=== PATIENT | male | born 1995 | race Caucasian/White ===

== ENCOUNTER 2019-04-25 13:19 | Emergency (ER) | payer BC, OTHER ==
--- NOTE | 2019-04-25 14:40 | XR ---
EXAMINATION TYPE: XR foot complete LT DATE OF EXAM: 04/25/2019 COMPARISON: NONE HISTORY: Laceration TECHNIQUE: 3 views FINDINGS: Metatarsals are intact. I see no fracture nor dislocation. The big toe appears intact. Ther e is no sign of a foreign body. IMPRESSION: Negative left foot exam.
--- NOTE | 2019-04-25 14:54 | ED ---
Wound/Laceration HPI - General Chief Complaint: Wound/Laceration Stated Complaint: Foot Lac Time Seen by Provider: 04/25/19 13:43 Source: patient, family Mode of arrival: ambulatory Limitations: no limitations - History of Present Illness Initial Comments: 23-year-old male presented for left great toe laceration. 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 He states he has a cut that he feels needs sutures. Patient denies any limitations in range of motion. Denies any weakness. Denies any other areas of injury. Patient states his tetanus is up-to-date within the last 10 years. Patient denies numbness tingling loss sensation. Remaining review of systems negative denies any other complaints or areas of injury. - Related Data Previous Rx's Medication Instructions Recorded Citalopram Hydrobromide [CeleXA] 40 mg PO DAILY #60 tab 05/01/16 LORazepam [Ativan] 0.5 mg PO HS #14 tab 05/01/16 Nicotine 21Mg/24Hr Patch [Habitrol] 1 patch TRANSDERM DAILY #30 patch 05/01/16 QUEtiapine [SEROquel] 50 mg PO HS #30 tab 05/01/16 Allergies Allergy/AdvReac Type Severity Reaction Status Date / Time No Known Allergies Allergy Verified 04/25/16 17:04 Review of Systems ROS Statement: Those systems with pertinent positive or pertinent negative responses have been documented in the HPI. ROS Other: All systems not noted in ROS Statement are negative. Past Medical History Past Medical History: No Reported History History of Any Multi-Drug Resistant Organisms: None Reported Past Surgical History: No Surgical Hx Reported Past Anesthesia/Blood Transfusion Reactions: No Reported Reaction Past Psychological History: Anxiety, Depression Smoking Status: Current every day smoker Past Alcohol Use History: None Reported Past Drug Use History: None Reported - Past Family History Father Additional Family Medical History / Comment(s): Multiple sclerosis. Mother Family Medical History: No Reported History General Exam - General Exam Comments Initial Comments: General: The patient is awake and alert, in no distress, and does not appear acutely ill. Eye: Pupils are equal, round and reactive to light, extra-ocular movements are intact. No nystagmus. There is normal conjunctiva bilaterally. No signs of icterus. Musculoskeletal: Normal ROM at the IP joint, tender at laceration Strength 5/5. Sensation intact. DP pulses equal bilaterally 2+. Capillary refill less than 3 seconds Neurological: A&O x 3. CN II-XII intact, There are no obvious motor or sensory deficits. Coordination appears grossly intact. Speech is normal. Skin: Skin is warm and dry and no rashes or lesions are noted. 3cm laceration of the dorsal side of left great toe, no nailbed involvement Psychiatric: Cooperative, appropriate mood & affect, normal judgment. Limitations: no limitations Course Vital Signs 04/25/19 04/25/19 13:44 14:55 Temperature 98.4 F 98.2 F Pulse Rate 92 85 Respiratory 16 13 Rate Blood Pressure 124/83 122/82 O2 Sat by Pulse 98 98 Oximetry Procedures - Laceration Laceration #1 Consent Obtained: verbal consent Indication: laceration Site: other (left great toe) Size (cm): 3 (2.5 actual size) Description: linear Depth: simple, single layer Pre-repair: wound explored, irrigated extensively, deep structures intact Type of Sutures: nylon Size of Sutures: 5-0 Number of Sutures: 5 Technique: simple, interrupted Patient Tolerated Procedure: well, no complications Additional Comments: refused anesthetic. Irrigated extensively prior. No evidence of underlying injury. Type procedure well and wound edges approximated well Medical Decision Making - Medical Decision Making 23-year-old male presenting to the laceration of left great toe. It appears superficial. No underlying structures exposed. Neurovascular intact. Repaired after irrigation. PLain films negative for FB, osseous injury. Return parameters and wound care discussed. Patient discharged appearing well. Disposition Clinical Impression: Laceration of left great toe, Pain of left great toe Disposition: HOME SELF-CARE Condition: Good Instructions (If sedation given, give patient instructions): Care For Your Stitches (ED), Laceration (ED) Additional Instructions: Please use medication as discussed. Please follow-up in the emergency department for suture removal in 7 days. Please keep area covered when at work and change bandage daily. He may apply a topical Neosporin or bacitracin. Please return to emergency room if the symptoms increase or worsen or for any other concerns. Is patient prescribed a controlled substance at d/c from ED?: No Referrals: None,Stated [Primary Care Provider] - 1-2 days Time of Disposition: 14:53
[2019-04-25 15:06] VITALS: BP 122/82; PULSE 85; RESP 13; TEMP 98.2
== END 2019-04-25 14:55 | disposition home or self-care (01) ==
LOC: EC 13:19
DX: S91.112A Laceration without foreign body of left great toe without damage to nail, initial encounter (principal); F17.200 Nicotine dependence, unspecified, uncomplicated; W26.0XXA Contact with knife, initial encounter; Y93.G3 Activity, cooking and baking; Y99.0 Civilian activity done for income or pay
CPT/HCPCS: 12002; 99283

== ENCOUNTER 2019-06-04 16:21 | Emergency (ER) | payer BC, OTHER ==
[2019-06-04] MEDS ORDERED: SODIUM CHLORIDE 0.9% 1,000 ML IV STA (17:34)
[2019-06-04] MEDS ORDERED: FAMOTIDINE 20 MG/2 ML VIAL IV STA (17:39)
[2019-06-04] MEDS ORDERED: PANTOPRAZOLE 40 MG/10 ML VIAL IVP STA (18:20)
[2019-06-04] MEDS ORDERED: MAG HYDROX/AL HYDROX/SIMETH 30 ML, HYOSCYAMINE ELIXIR 10 ML, CIMETIDINE HCL 300 MG, LID... PO STA ×4 (18:21)
[2019-06-04 18:23] LABS: Appearance,Urine Clear (Clear); Basophils # (A) 0.1 k/uL (0-0.2); Basophils % (A) 1 %; Bilirubin,Urine Negative (Negative); Blood,Urine Negative (Negative); Color,Urine Yellow; Eosinophils # (A) 0.1 k/uL (0-0.7); Eosinophils % (A) 1 %; Glucose,Urine (UA) Negative (Negative); HCT 44.3 % (39.0-53.0); HGB 14.9 gm/dL (13.0-17.5); Ketones,Urine Negative (Negative); Leukocyte Esterase,Urine Negative (Negative); Lymphocytes # (A) 1.3 k/uL (1.0-4.8); Lymphocytes % (A) 20 %; MCH 29.5 pg (25.0-35.0); MCHC 33.7 g/dL (31.0-37.0); MCV 87.5 fL (80.0-100.0); Mean Platelet Volume 8.9; Monocytes # (A) 0.6 k/uL (0-1.0); Monocytes % (A) 9 %; Neutrophils # (A) 4.3 k/uL (1.3-7.7); Neutrophils % (A) 66 %; Nitrite,Urine Negative (Negative); Platelet Count 191 k/uL (150-450); Protein,Urine Trace (Negative); RBC 5.06 m/uL (4.30-5.90); RDW 13.4 % (11.5-15.5); Specific Gravity,Urine 1.022 (1.001-1.035); Urobilinogen,Urine <2.0 mg/dL (<2.0); WBC 6.5 k/uL (3.8-10.6)
[2019-06-04 18:33] LABS: ALT 87 U/L (21-72); AST 64 U/L (17-59); African American GFR (CKD) >90 (>60 ml/min/1.73 sqM); Albumin 4.5 g/dL (3.5-5.0); Alkaline Phosphatase 76 U/L (38-126); Amylase 53 U/L (30-110); Anion Gap 12 mmol/L; Blood Urea Nitrogen 11 mg/dL (9-20); Calcium 8.9 mg/dL (8.4-10.2); Carbon Dioxide 28 mmol/L (22-30); Chloride 105 mmol/L (98-107); Glucose 104 mg/dL (74-99); Potassium 4.4 mmol/L (3.5-5.1); Sodium 145 mmol/L (137-145); Total Bilirubin 0.3 mg/dL (0.2-1.3); Total Protein 7.4 g/dL (6.3-8.2)
--- NOTE | 2019-06-04 19:08 | XR ---
EXAMINATION TYPE: XR abdomen acute w cxr DATE OF EXAM: 06/04/2019 COMPARISON: NONE HISTORY: Abdominal pain TECHNIQUE: Chest x-ray with supine and upright abdomen FINDINGS: Heart and mediastinum are normal. Lungs are clear. Diaphragm is normal. Bony thorax appears normal. Bowel gas pattern is normal. There is no sign of intestinal obstruction or pneumoperitoneum. Fecal pa ttern is normal. There are no pathologic calcifications.. IMPRESSION: Nonacute abdomen. Normal chest.
--- NOTE | 2019-06-04 19:55 | ED ---
General Adult HPI - General Chief complaint: Abdominal Pain Stated complaint: Abd pain Time Seen by Provider: 06/04/19 17:15 Source: patient, RN notes reviewed Mode of arrival: ambulatory Limitations: no limitations - History of Present Illness Initial comments: 23-year-old male without any significant past medical history presents to the emergency department for epigastric pain. Patient is a chronic alcoholic who quit drinking last night. States that he has been having epigastric pain for several weeks. States that drinking makes this worse. States that he thinks he has an ulcer. Denies any fevers or chills. Denies any lower abdominal pain. Admits to nausea but denies any diarrhea. Patient did cough up blood last night. Patient has not had any episodes of hematemesis otherwise. Patient has no other complaints at this time including shortness of breath, chest pain, nausea or vomiting, headache, or visual changes. - Related Data Previous Rx's Medication Instructions Recorded Pantoprazole Sodium [Protonix] 40 mg PO DAILY #20 tablet. 06/04/19 Allergies Allergy/AdvReac Type Severity Reaction Status Date / Time No Known Allergies Allergy Verified 06/04/19 17:16 Review of Systems ROS Statement: Those systems with pertinent positive or pertinent negative responses have been documented in the HPI. ROS Other: All systems not noted in ROS Statement are negative. Past Medical History Past Medical History: No Reported History History of Any Multi-Drug Resistant Organisms: None Reported Past Surgical History: No Surgical Hx Reported Past Anesthesia/Blood Transfusion Reactions: No Reported Reaction Past Psychological History: Anxiety, Depression Smoking Status: Current every day smoker Past Alcohol Use History: Abuse, Daily Past Drug Use History: None Reported - Past Family History Father Additional Family Medical History / Comment(s): Multiple sclerosis. Mother Family Medical History: No Reported History General Exam Limitations: no limitations General appearance: alert, in no apparent distress Head exam: Present: atraumatic, normocephalic, normal inspection Eye exam: Present: normal appearance, PERRL, EOMI. Absent: scleral icterus, conjunctival injection, periorbital swelling ENT exam: Present: normal exam, mucous membranes moist Neck exam: Present: normal inspection, full ROM. Absent: tenderness, meningismus, lymphadenopathy Respiratory exam: Present: normal lung sounds bilaterally. Absent: respiratory distress, wheezes, rales, rhonchi, stridor Cardiovascular Exam: Present: regular rate, normal rhythm, normal heart sounds. Absent: systolic murmur, diastolic murmur, rubs, gallop, clicks GI/Abdominal exam: Present: soft, tenderness (Epigastric tenderness, no lower abdominal tenderness. No right upper quadrant tenderness.), normal bowel sounds. Absent: distended, guarding, rebound, rigid Neurological exam: Present: alert Course Vital Signs 06/04/19 16:33 Temperature 99 F Pulse Rate 94 Respiratory 18 Rate Blood Pressure 121/80 O2 Sat by Pulse 97 Oximetry Medical Decision Making - Medical Decision Making 23-year-old male presents to the emergency department for a chief complaint of epigastric pain. Patient also had one episode of hematemesis last night with bright red blood. States he has not had any hematemesis since that time. Vitals are stable throughout patient's stay. On exam patient does have epigastric tenderness. CBC shows a hemoglobin of 14.9. CMP is unremarkable. Urine negative. Acute abdominal series shows a nonacute abdomen with a normal chest. Patient likely has a gastritis. No be discharged with Protonix. How ever recommended close GI follow-up for possible scope due to possible ulcer. Discussed returning here if he has any worsening symptoms. Patient's girlfriend is driving him home. - Lab Data Result diagrams: 06/04/19 18:02 06/04/19 18:02 Lab Results 06/04/19 06/04/19 06/04/19 Range/Units 18:02 18:02 18:02 WBC 6.5 (3.8-10.6) k/uL RBC 5.06 (4.30-5.90) m/uL Hgb 14.9 (13.0-17.5) gm/dL Hct 44.3 (39.0-53.0) % MCV 87.5 (80.0-100.0) fL MCH 29.5 (25.0-35.0) pg MCHC 33.7 (31.0-37.0) g/dL RDW 13.4 (11.5-15.5) % Plt Count 191 (150-450) k/uL Neutrophils % 66 % Lymphocytes % 20 % Monocytes % 9 % Eosinophils % 1 % Basophils % 1 % Neutrophils # 4.3 (1.3-7.7) k/uL Lymphocytes # 1.3 (1.0-4.8) k/uL Monocytes # 0.6 (0-1.0) k/uL Eosinophils # 0.1 (0-0.7) k/uL Basophils # 0.1 (0-0.2) k/uL Sodium 145 (137-145) mmol/L Potassium 4.4 (3.5-5.1) mmol/L Chloride 105 (98-107) mmol/L Carbon Dioxide 28 (22-30) mmol/L Anion Gap 12 mmol/L BUN 11 (9-20) mg/dL Creatinine 0.70 (0.66-1.25) mg/dL Est GFR (CKD-EPI)AfAm >90 (>60 ml/min/1.73 sqM) Est GFR (CKD-EPI)NonAf >90 (>60 ml/min/1.73 sqM) Glucose 104 H (74-99) mg/dL Calcium 8.9 (8.4-10.2) mg/dL Magnesium 2.0 (1.6-2.3) mg/dL Total Bilirubin 0.3 (0.2-1.3) mg/dL AST 64 H (17-59) U/L ALT 87 H (21-72) U/L Alkaline Phosphatase 76 (38-126) U/L Troponin I <0.012 (0.000-0.034) ng/mL Total Protein 7.4 (6.3-8.2) g/dL Albumin 4.5 (3.5-5.0) g/dL Amylase 53 (30-110) U/L Lipase 51 (23-300) U/L Urine Color Urine Appearance (Clear) Urine pH (5.0-8.0) Ur Specific Foster (1.001-1.035) Urine Protein (Negative) Urine Glucose (UA) (Negative) Urine Ketones (Negative) Urine Blood (Negative) Urine Nitrite (Negative) Urine Bilirubin (Negative) Urine Urobilinogen (<2.0) mg/dL Ur Leukocyte Esterase (Negative) 06/04/19 Range/Units 18:02 WBC (3.8-10.6) k/uL RBC (4.30-5.90) m/uL Hgb (13.0-17.5) gm/dL Hct (39.0-53.0) % MCV (80.0-100.0) fL MCH (25.0-35.0) pg MCHC (31.0-37.0) g/dL RDW (11.5-15.5) % Plt Count (150-450) k/uL Neutrophils % % Lymphocytes % % Monocytes % % Eosinophils % % Basophils % % Neutrophils # (1.3-7.7) k/uL Lymphocytes # (1.0-4.8) k/uL Monocytes # (0-1.0) k/uL Eosinophils # (0-0.7) k/uL Basophils # (0-0.2) k/uL Sodium (137-145) mmol/L Potassium (3.5-5.1) mmol/L Chloride (98-107) mmol/L Carbon Dioxide (22-30) mmol/L Anion Gap mmol/L BUN (9-20) mg/dL Creatinine (0.66-1.25) mg/dL Est GFR (CKD-EPI)AfAm (>60 ml/min/1.73 sqM) Est GFR (CKD-EPI)NonAf (>60 ml/min/1.73 sqM) Glucose (74-99) mg/dL Calcium (8.4-10.2) mg/dL Magnesium (1.6-2.3) mg/dL Total Bilirubin (0.2-1.3) mg/dL AST (17-59) U/L ALT (21-72) U/L Alkaline Phosphatase (38-126) U/L Troponin I (0.000-0.034) ng/mL Total Protein (6.3-8.2) g/dL Albumin (3.5-5.0) g/dL Amylase (30-110) U/L Lipase (23-300) U/L Urine Color Yellow Urine Appearance Clear (Clear) Urine pH 8.0 (5.0-8.0) Ur Specific Foster 1.022 (1.001-1.035) Urine Protein Trace H (Negative) Urine Glucose (UA) Negative (Negative) Urine Ketones Negative (Negative) Urine Blood Negative (Negative) Urine Nitrite Negative (Negative) Urine Bilirubin Negative (Negative) Urine Urobilinogen <2.0 (<2.0) mg/dL Ur Leukocyte Esterase Negative (Negative) Disposition Clinical Impression: Epigastric abdominal pain Disposition: HOME SELF-CARE Condition: Good Instructions (If sedation given, give patient instructions): Abdominal Pain (ED) Additional Instructions: Please take Protonix as directed. Please follow-up with GI service as soon as possible. Return if you have any worsening symptoms. Prescriptions: Pantoprazole Sodium [Protonix] 40 mg PO DAILY #20 tablet.dr Is patient prescribed a controlled substance at d/c from ED?: No Referrals: None,Stated [Primary Care Provider] - 1-2 days Savanna Britt MD [REFERRING] - 1-2 days Mala Ramos MD [STAFF PHYSICIAN] - 1-2 days Time of Disposition: 19:52
[2019-06-04] MEDS ORDERED: ONDANSETRON 4 MG/2 ML VIAL IVP STA (21:03)
[2019-06-04 21:48] VITALS: BP 132/56; PULSE 89; RESP 20; TEMP 98.9
== END 2019-06-04 21:45 | disposition home or self-care (01) ==
LOC: EC 16:21
DX: R10.13 Epigastric pain (principal); R11.0 Nausea; F17.200 Nicotine dependence, unspecified, uncomplicated
CPT/HCPCS: 36415; 80053; 82150; 83690; 83735; 84484; 85025; 81003; 74022; 99284; 96374; 96375 ×2; 96361; J2405; C9113

== ENCOUNTER 2019-06-13 11:54 | Emergency (ER) | payer OTHER ==
[2019-06-13 12:20] VITALS: RESP 18
[2019-06-13] MEDS ORDERED: PANTOPRAZOLE 40 MG/10 ML VIAL IVP STA (13:15)
--- NOTE | 2019-06-13 13:19 | ED ---
GI Bleed HPI - General Chief complaint: GI Bleed Stated complaint: ulcer problem Time Seen by Provider: 06/13/19 12:21 Source: patient Mode of arrival: ambulatory Limitations: no limitations - History of Present Illness Initial comments: 23-year-old female presented for chief complaint dark brown stool, vomiting. Patient states that he has had dark brown stools and vomiting. He is concerned about a GI bleed. Patient states that he feels he has a peptic ulcer he has not had official diagnosis and has upper endoscopy scheduled on June [address] Ga. Patient states he has no abdominal pain he said that sometimes he does have a pain in the epigastric region however none currently. Patient denies chest pain shortness of breath. He denies any pallor cold intolerance, heart palpitations or sensation of syncope. Patient states he was told to return to emergency department if he experienced bleeding patient denies any bright red blood per rectum. Patient states he did not follow-up episode of hematemesis that was reddish he denies it being piotr red blood. Denies diarrhea, fevers. Remaining ROS (-). Upon arrival patient appears well, there is no signs of acute distress. VS stable well appearing. - Related Data Previous Rx's Medication Instructions Recorded Pantoprazole Sodium [Protonix] 40 mg PO DAILY #20 tablet. 06/04/19 Allergies Allergy/AdvReac Type Severity Reaction Status Date / Time No Known Allergies Allergy Verified 06/04/19 17:16 Review of Systems ROS Statement: Those systems with pertinent positive or pertinent negative responses have been documented in the HPI. ROS Other: All systems not noted in ROS Statement are negative. Past Medical History Past Medical History: No Reported History Additional Past Medical History / Comment(s): etoh abuse History of Any Multi-Drug Resistant Organisms: None Reported Past Surgical History: No Surgical Hx Reported Past Anesthesia/Blood Transfusion Reactions: No Reported Reaction Past Psychological History: Anxiety, Depression Smoking Status: Current every day smoker Past Alcohol Use History: Abuse, Daily Past Drug Use History: Marijuana - Past Family History Father Additional Family Medical History / Comment(s): Multiple sclerosis. Mother Family Medical History: No Reported History General Exam - General Exam Comments Initial Comments: General: The patient is awake and alert, in no distress, and does not appear acutely ill. Eye: +3 mm pupils are equal, round and reactive to light, extra-ocular movements are intact. No nystagmus. There is normal conjunctiva bilaterally. No signs of icterus. Ears, nose, mouth and throat: There are moist mucous membranes and no oral lesions. Neck: The neck is supple, there is no tenderness or JVD. Cardiovascular: There is a regular rate and rhythm. No murmur, rub or gallop is appreciated. Respiratory: Lungs are clear to auscultation, respirations are non-labored, breath sounds are equal. No wheezes, stridor, rales, or rhonchi. Gastrointestinal: Soft, non-distended, non-tender abdomen without masses or organomegaly noted. There is no rebound or guarding present. No CVA tenderness. Bowel sounds are unremarkable. Refused rectal exam: provided sample for occult of stool. Musculoskeletal: Normal ROM, no tenderness. Strength 5/5. Sensation intact. Pulses equal bilaterally 2+. Neurological: A&O x 3. CN II-XII intact grossly, There are no obvious motor or sensory deficits. Coordination appears grossly intact. Speech is normal. Skin: Skin is warm and dry and no rashes or lesions are noted. Psychiatric: Cooperative, appropriate mood & affect, normal judgment. Limitations: no limitations Course Vital Signs 06/13/19 06/13/19 12:16 15:03 Temperature 98.3 F 98.7 F Pulse Rate 82 87 Respiratory 18 18 Rate Blood Pressure 123/82 135/94 O2 Sat by Pulse 98 97 Oximetry Medical Decision Making - Medical Decision Making 23-year-old male presents emergency department for chief complaint of dark stools possible peptic ulcer and vomiting. Patient states that he was heavily drinking yesterday. He states it episode of emesis. Patient denies hemate mesis. Patient states he feels his stools are darker than normal he was concerned of a GI bleed. Patient is hemodynamically stable appearing well besides the pallor or tachycardia. Patient denies any symptoms of anemia. Patient has benign abdominal exam. No acute distress. Occult blood negative. Patient provided IV Protonix. Hemoglobin stable, she has outpatient EGD scheduled. Discussed the case with Dr. Dr. Moreira at this time. Given patient's age, VS, labs and negative occult blood with no piotr blood in sample that patient is stable for discharge with outpatient protonix (which patient states he has current RX) and GI f/u. Patient is agreeable with this care plan return parameters and prefers discharge at this time. - Lab Data Result diagrams: 06/13/19 13:45 06/13/19 13:45 Lab Results 06/13/19 06/13/19 06/13/19 Range/Units 13:25 13:45 13:45 WBC 5.0 (3.8-10.6) k/uL RBC 5.16 (4.30-5.90) m/uL Hgb 15.2 (13.0-17.5) gm/dL Hct 44.7 (39.0-53.0) % MCV 86.7 (80.0-100.0) fL MCH 29.5 (25.0-35.0) pg MCHC 34.0 (31.0-37.0) g/dL RDW 13.6 (11.5-15.5) % Plt Count 143 L (150-450) k/uL Neutrophils % 55 % Lymphocytes % 29 % Monocytes % 10 % Eosinophils % 2 % Basophils % 1 % Neutrophils # 2.7 (1.3-7.7) k/uL Lymphocytes # 1.4 (1.0-4.8) k/uL Monocytes # 0.5 (0-1.0) k/uL Eosinophils # 0.1 (0-0.7) k/uL Basophils # 0.0 (0-0.2) k/uL PT (9.0-12.0) sec INR (<1.2) APTT (22.0-30.0) sec Sodium 145 (137-145) mmol/L Potassium 4.4 (3.5-5.1) mmol/L Chloride 107 (98-107) mmol/L Carbon Dioxide 26 (22-30) mmol/L Anion Gap 12 mmol/L BUN 10 (9-20) mg/dL Creatinine 0.60 L (0.66-1.25) mg/dL Est GFR (CKD-EPI)AfAm >90 (>60 ml/min/1.73 sqM) Est GFR (CKD-EPI)NonAf >90 (>60 ml/min/1.73 sqM) Glucose 106 H (74-99) mg/dL Plasma Lactic Acid Asad (0.7-2.0) mmol/L Calcium 9.0 (8.4-10.2) mg/dL Total Bilirubin 0.4 (0.2-1.3) mg/dL AST 63 H (17-59) U/L ALT 79 H (21-72) U/L Alkaline Phosphatase 87 (38-126) U/L Troponin I (0.000-0.034) ng/mL Total Protein 7.6 (6.3-8.2) g/dL Albumin 4.6 (3.5-5.0) g/dL Stool Occult Blood Negative (Negative) 06/13/19 06/13/19 06/13/19 Range/Units 13:45 13:45 13:45 WBC (3.8-10.6) k/uL RBC (4.30-5.90) m/uL Hgb (13.0-17.5) gm/dL Hct (39.0-53.0) % MCV (80.0-100.0) fL MCH (25.0-35.0) pg MCHC (31.0-37.0) g/dL RDW (11.5-15.5) % Plt Count (150-450) k/uL Neutrophils % % Lymphocytes % % Monocytes % % Eosinophils % % Basophils % % Neutrophils # (1.3-7.7) k/uL Lymphocytes # (1.0-4.8) k/uL Monocytes # (0-1.0) k/uL Eosinophils # (0-0.7) k/uL Basophils # (0-0.2) k/uL PT 10.4 (9.0-12.0) sec INR 1.0 (<1.2) APTT 32.1 H (22.0-30.0) sec Sodium (137-145) mmol/L Potassium (3.5-5.1) mmol/L Chloride (98-107) mmol/L Carbon Dioxide (22-30) mmol/L Anion Gap mmol/L BUN (9-20) mg/dL Creatinine (0.66-1.25) mg/dL Est GFR (CKD-EPI)AfAm (>60 ml/min/1.73 sqM) Est GFR (CKD-EPI)NonAf (>60 ml/min/1.73 sqM) Glucose (74-99) mg/dL Plasma Lactic Acid Asad 1.6 (0.7-2.0) mmol/L Calcium (8.4-10.2) mg/dL Total Bilirubin (0.2-1.3) mg/dL AST (17-59) U/L ALT (21-72) U/L Alkaline Phosphatase (38-126) U/L Troponin I <0.012 (0.000-0.034) ng/mL Total Protein (6.3-8.2) g/dL Albumin (3.5-5.0) g/dL Stool Occult Blood (Negative) Disposition Clinical Impression: PUD (peptic ulcer disease), GI bleed Disposition: HOME SELF-CARE Condition: Good Instructions (If sedation given, give patient instructions): Gastrointestinal Bleeding (ED) Additional Instructions: Please use medication as discussed. Please follow-up with family doctor in the next 2 days, follow-up with [facility] as scheduled. Continue protonix. Please return to emergency room if the symptoms increase or worsen or for any other concerns. Is patient prescribed a controlled substance at d/c from ED?: No Referrals: None,Stated [Primary Care Provider] - 1-2 days Time of Disposition: 14:41
--- NOTE | 2019-06-13 13:43 | XR ---
EXAMINATION TYPE: XR abdomen acute w cxr , 4 VIEWS DATE OF EXAM ORDERED: 06/13/2019 HISTORY: GI bleed, PUD. COMPARISON: Previous study dated 06/04/2019. FINDINGS: The lungs are clear. Pleural spaces are clear. Heart size upper limits of normal. Within the abdomen, the abdominal gas pattern is normal. No evidence of obstruction or free air. No u nusual calcifications are seen. IMPRESSION: NO ACUTE ABDOMINAL OR THORACIC ABNORMALITY.
[2019-06-13 14:07] LABS: Chloride 107 mmol/L (98-107); Partial Thromboplastin Time 32.1 sec (22.0-30.0); Prothrombin Time 10.4 sec (9.0-12.0)
[2019-06-13 14:10] LABS: ALT 79 U/L (21-72); AST 63 U/L (17-59); African American GFR (CKD) >90 (>60 ml/min/1.73 sqM); Albumin 4.6 g/dL (3.5-5.0); Alkaline Phosphatase 87 U/L (38-126); Anion Gap 12 mmol/L; Blood Urea Nitrogen 10 mg/dL (9-20); Carbon Dioxide 26 mmol/L (22-30); Glucose 106 mg/dL (74-99); Potassium 4.4 mmol/L (3.5-5.1); Sodium 145 mmol/L (137-145); Total Bilirubin 0.4 mg/dL (0.2-1.3); Total Protein 7.6 g/dL (6.3-8.2)
[2019-06-13 14:16] LABS: Basophils % (A) 1 %; Eosinophils # (A) 0.1 k/uL (0-0.7); Eosinophils % (A) 2 %; HCT 44.7 % (39.0-53.0); HGB 15.2 gm/dL (13.0-17.5); Lymphocytes # (A) 1.4 k/uL (1.0-4.8); Lymphocytes % (A) 29 %; MCH 29.5 pg (25.0-35.0); MCV 86.7 fL (80.0-100.0); Mean Platelet Volume 9.5; Monocytes # (A) 0.5 k/uL (0-1.0); Monocytes % (A) 10 %; Neutrophils # (A) 2.7 k/uL (1.3-7.7); Neutrophils % (A) 55 %; Platelet Count 143 k/uL (150-450); RBC 5.16 m/uL (4.30-5.90); RDW 13.6 % (11.5-15.5)
[2019-06-13 15:05] VITALS: BP 135/94; PULSE 87; TEMP 98.7
== END 2019-06-13 15:04 | disposition home or self-care (01) ==
LOC: EC 11:54
DX: K27.9 Peptic ulcer, site unspecified, unspecified as acute or chronic, without hemorrhage or perforation (principal); F17.200 Nicotine dependence, unspecified, uncomplicated
CPT/HCPCS: 36415; 80053; 83605; 84484; 85025; 85610; 85730; 82272; 74022; 99285; 96374; C9113

== ENCOUNTER 2019-07-19 20:49 | Emergency (ER) | payer OTHER ==
[2019-07-19 21:01] VITALS: BP 124/77; PULSE 101; RESP 16; TEMP 97.9
--- NOTE | 2019-07-19 21:23 | ED ---
General Adult HPI - General Chief complaint: Extremity Injury, Upper Stated complaint: Hand injury Time Seen by Provider: 07/19/19 21:02 Source: patient Mode of arrival: ambulatory Limitations: no limitations - History of Present Illness Initial comments: Patient is a 23-year-old male presenting to the emergency room with a chief complaint of hand pain. Patient reports he punched a wall with both hands about 2 hours prior to ED arrival. Patient reports swelling on all 4 MCP joints of bilateral hands. She denies any numbness or tingling. Patient has full range of motion however he reports the pain is exacerbated when he makes a full fist. Patient denies any numbness or tingling. Patient reports the pain is a 6 and throbbing. Patient denies taking medication to alleviate the symptoms. Patient denies any abrasions or lacerations on the hands. - Related Data Previous Rx's Medication Instructions Recorded Pantoprazole Sodium [Protonix] 40 mg PO DAILY #20 tablet. 06/04/19 Allergies Allergy/AdvReac Type Severity Reaction Status Date / Time No Known Allergies Allergy Verified 07/19/19 21:01 Review of Systems ROS Statement: Those systems with pertinent positive or pertinent negative responses have been documented in the HPI. ROS Other: All systems not noted in ROS Statement are negative. Past Medical History Past Medical History: No Reported History Additional Past Medical History / Comment(s): etoh abuse x 4 years. History of Any Multi-Drug Resistant Organisms: None Reported Past Surgical History: No Surgical Hx Reported Additional Past Surgical History / Comment(s): wisdom teeth Past Anesthesia/Blood Transfusion Reactions: No Reported Reaction Past Psychological History: Anxiety, Depression Smoking Status: Current every day smoker Past Alcohol Use History: Abuse, Daily Past Drug Use History: Marijuana - Past Family History Father Additional Family Medical History / Comment(s): Multiple sclerosis. Mother Family Medical History: No Reported History General Exam Limitations: no limitations General appearance: alert, in no apparent distress Head exam: Present: atraumatic, normocephalic, normal inspection Eye exam: Present: normal appearance Pupils: Present: normal accommodation ENT exam: Present: normal exam, mucous membranes moist, normal external ear exam Neck exam: Present: normal inspection, full ROM Respiratory exam: Present: normal lung sounds bilaterally Cardiovascular Exam: Present: regular rate, normal rhythm, normal heart sounds Extremities exam: Present: full ROM, tenderness, normal capillary refill, other (+2 ulnar and radial pulses bilaterally.). Absent: normal inspection (Swelling of the MCP joints of bilateral hands.) Back exam: Present: normal inspection, full ROM Neurological exam: Present: alert, oriented X3 Psychiatric exam: Present: normal affect, normal mood Skin exam: Present: warm, intact, normal color Course Vital Signs 07/19/19 20:58 Temperature 97.9 F Pulse Rate 101 H Respiratory 16 Rate Blood Pressure 124/77 O2 Sat by Pulse 95 Oximetry Medical Decision Making - Medical Decision Making Patient is a 23-year-old male presenting to the emergency department with a chief complaint of hand pain. Patient was punching a wall with both hands. Physical examination is only remarkable for swelling second through fifth MCP joints and bilateral hands. Patient is neurovascularly intact. X-rays are negative. Patient advised to follow-up with primary care. Patient advised to alternate between Tylenol and ibuprofen for pain control. Patient advised to apply ice compresses minimus symptoms. Strict return parameters were thoroughly discussed the patient is a worsening agreeable. Case discussed physician. Disposition Clinical Impression: Contusion of hand, right, Contusion of hand, left Disposition: HOME SELF-CARE Condition: Stable Instructions (If sedation given, give patient instructions): Hand Sprain (ED) Additional Instructions: Alternate between Tylenol and ibuprofen for pain control. Apply ice compress to minimize symptoms. Please return to emergency department if symptoms worsen. Is patient prescribed a controlled substance at d/c from ED?: No Referrals: None,Stated [Primary Care Provider] - 1-2 days Time of Disposition: 22:03
[2019-07-19] MEDS ORDERED: IBUPROFEN 600 MG TAB PO STA (21:35)
--- NOTE | 2019-07-19 21:51 | XR ---
EXAMINATION TYPE: XR hand complete bilateral DATE OF EXAM: 07/19/2019 COMPARISON: NONE HISTORY: Bilateral pain TECHNIQUE: 3 views each hand FINDINGS: Metacarpals are intact. I see no fracture nor dislocation. Joint spaces are normal. There a re no erosions. There is no evidence of a boxer fracture. There is benign exostosis on the right dist al radius. IMPRESSION: No acute abnormality of the left and right hand.
== END 2019-07-19 22:16 | disposition home or self-care (01) ==
LOC: EC 20:49
DX: S60.221A Contusion of right hand, initial encounter (principal); S60.222A Contusion of left hand, initial encounter; F17.200 Nicotine dependence, unspecified, uncomplicated; W22.01XA Walked into wall, initial encounter
CPT/HCPCS: 99283

== ENCOUNTER → 2019-07-20 | Outpatient (CLI) | payer OTHER ==
[2019-07-20 11:35] LABS: HCT 44.9 % (39.0-53.0); HGB 14.6 gm/dL (13.0-17.5); MCH 29.9 pg (25.0-35.0); MCHC 32.5 g/dL (31.0-37.0); Mean Platelet Volume 8.4; Platelet Count 164 k/uL (150-450); RBC 4.89 m/uL (4.30-5.90); RDW 13.7 % (11.5-15.5); WBC 7.4 k/uL (3.8-10.6)
[2019-07-20 11:36] LABS: MCV 91.9 fL (80.0-100.0)
[2019-07-20 18:19] LABS: African American GFR (CKD) 145.9 (60.0-200.0); Albumin 4.7 g/dL (3.80-4.90); Albumin/Globulin Ratio 2.47 (1.60-3.17); Anion Gap 7.4 mmol/L (4.00-12.00); BUN/Creat Ratio 18.75 Ratio (12.00-20.00); Carbon Dioxide 26.6 mmol/L (21.6-31.8); Globulin 1.9 g/dL (1.6-3.3); Potassium 4.6 mmol/L (3.5-5.5); Total Bilirubin 0.6 mg/dL (0.3-1.2); Total Protein 6.6 g/dL (6.2-8.2)
== END | disposition home or self-care (01) ==
LOC: LABWHC1 10:28
PROVIDERS: ATTEND Internal Medicine Interventional Cardiology
DX: R07.89 Other chest pain (principal)
CPT/HCPCS: 36415; 80053; 85027

== ENCOUNTER 2019-10-08 03:24 | Emergency (ER) | payer OTHER ==
[2019-10-08] MEDS ORDERED: LIDOCAINE 1% INJ 10MG/ML (20 ML MDV) SQ ONE (03:50)
[2019-10-08] MEDS ORDERED: CEPHALEXIN 500MG STARTER PACK 4 CAP BTL PO STA (03:50)
[2019-10-08] MEDS ORDERED: DIPH,PERTUS(ACELL)TETVAC-LF 0.5 ML VIAL IM ONE (03:50)
--- NOTE | 2019-10-08 03:53 | ED ---
Extremity Problem HPI - General Chief complaint: Extremity Problem,Nontraumatic Stated complaint: Finger Injury Time Seen by Provider: 10/08/19 03:35 Source: patient Mode of arrival: ambulatory Limitations: no limitations - History of Present Illness Initial comments: This patient is a 23-year-old man presenting to have evaluation of a left finger laceration. Patient states that he actually struck the second digit of his left hand against a cutting wheel. He states that he did briefly wash and then wrapped his finger. He did not feel it needed further attention on after he took the dressing off tonight he noticed that there was a little bit of swelling. Patient denies any redness, purulent drainage or fever. He denies weakness or numbness of the digit. MD Complaint: other (Laceration) Onset/Timin -: hour(s) Location: left, upper extremity History of Same: No Improves with: nothing Worsens with: nothing Associated Symptoms: denies other symptoms - Related Data Previous Rx's Medication Instructions Recorded Pantoprazole Sodium [Protonix] 40 mg PO DAILY #20 tablet. 06/04/19 Cephalexin [Keflex] 500 mg PO Q6HR #28 cap 10/08/19 Allergies Allergy/AdvReac Type Severity Reaction Status Date / Time No Known Allergies Allergy Verified 07/19/19 21:01 Review of Systems ROS Statement: Those systems with pertinent positive or pertinent negative responses have been documented in the HPI. ROS Other: All systems not noted in ROS Statement are negative. Constitutional: Denies: fever, chills Cardiovascular: Denies: palpitations Skin: Reports: as per HPI, other (Laceration) Past Medical History Past Medical History: No Reported History Additional Past Medical History / Comment(s): etoh abuse x 4 years. History of Any Multi-Drug Resistant Organisms: None Reported Past Surgical History: No Surgical Hx Reported Additional Past Surgical History / Comment(s): wisdom teeth Past Anesthesia/Blood Transfusion Reactions: No Reported Reaction Past Psychological History: Anxiety, Depression Smoking Status: Current every day smoker Past Alcohol Use History: Abuse, Daily Past Drug Use History: Marijuana - Past Family History Father Additional Family Medical History / Comment(s): Multiple sclerosis. Mother Family Medical History: No Reported History General Exam Limitations: no limitations Left Forearm Wrist exam: Present: normal inspection, full ROM. Absent: tenderness, swelling, abrasion, laceration Hand Wrist exam: Present: laceration (Patient is a laceration overlying the proximal IP joint of the left second digit. He does appear to have normal extensor strength. No sensory deficit. Capillary refill normal.) Vascular: Present: normal capillary refill Skin exam: Present: warm, dry, normal color Course Vital Signs 10/08/19 03:29 Temperature 98.3 F Pulse Rate 78 Respiratory 18 Rate Blood Pressure 120/68 O2 Sat by Pulse 100 Oximetry Procedures - Laceration Laceration #1 Consent Obtained: verbal consent Indication: laceration Site: hand Size (cm): 1 Description: linear Depth: simple, single layer Type of Sutures: nylon Size of Sutures: 5-0 Number of Sutures: 2 Technique: simple, interrupted Patient Tolerated Procedure: well, no complications Additional Comments: Patient requested no lidocaine. Disposition Clinical Impression: Laceration Disposition: HOME SELF-CARE Condition: Good Instructions (If sedation given, give patient instructions): Finger Laceration (ED) Prescriptions: Cephalexin [Keflex] 500 mg PO Q6HR #28 cap Is patient prescribed a controlled substance at d/c from ED?: No Referrals: None,Stated [Primary Care Provider] - 1-2 days
[2019-10-08 05:01] VITALS: BP 126/78; PULSE 90; RESP 20; TEMP 98
== END 2019-10-08 05:01 | disposition home or self-care (01) ==
LOC: EC 03:24
DX: S61.211A Laceration without foreign body of left index finger without damage to nail, initial encounter (principal); F17.200 Nicotine dependence, unspecified, uncomplicated; Z23 Encounter for immunization; W31.89XA Contact with other specified machinery, initial encounter
CPT/HCPCS: 90715; 99283; 12001; 90471; J2001

== ENCOUNTER 2020-10-24 19:21 | Emergency (ER) | payer OTHER ==
[2020-10-24 19:30] VITALS: RESP 18; TEMP 98.7
[2020-10-24] MEDS ORDERED: SODIUM CHLORIDE 0.9% 1,000 ML IV STA (19:37)
--- NOTE | 2020-10-24 19:40 | ED ---
Arrhythmia/Palpitations HPI - General Chief Complaint: Arrhythmia/Palpitations Stated Complaint: Chest pain Time Seen by Provider: 10/24/20 19:32 Source: patient, RN notes reviewed Mode of arrival: ambulatory Limitations: no limitations - History of Present Illness Initial Comments: Patient is a 24-year-old male that presents to emergency department complaining of heart palpitations. He noted that he initially thought was anxiety, but noticed that he was having some palpitations with sharp chest pains. He stated that he was feeling fine otherwise most the time except when the sharp part palpitations arose. She denied wanting any pain medication while in the room. He was in no apparent distress or pain while sitting up in bed. Patient did st ate that he does have anxiety. Denied any shortness of breath headache lightheadedness nausea vomiting diarrhea constipation fever fatigue chills change in vision change in hearing. - Related Data Home Medications Medication Instructions Recorded Confirmed cloNIDine HCL [Catapres] 0.1 mg PO HS 10/24/20 10/24/20 Allergies Allergy/AdvReac Type Severity Reaction Status Date / Time No Known Allergies Allergy Verified 10/24/20 20:38 Review of Systems ROS Statement: Those systems with pertinent positive or pertinent negative responses have been documented in the HPI. ROS Other: All systems not noted in ROS Statement are negative. Past Medical History Past Medical History: No Reported History Additional Past Medical History / Comment(s): etoh abuse x 4 years. History of Any Multi-Drug Resistant Organisms: None Reported Past Surgical History: No Surgical Hx Reported Additional Past Surgical History / Comment(s): wisdom teeth Past Anesthesia/Blood Transfusion Reactions: No Reported Reaction Past Psychological History: Anxiety, Depression Smoking Status: Current every day smoker Past Alcohol Use History: Abuse, Daily Past Drug Use History: Marijuana - Past Family History Father Additional Family Medical History / Comment(s): Multiple sclerosis. Mother Family Medical History: No Reported History General Exam Limitations: no limitations General appearance: alert, in no apparent distress Head exam: Present: atraumatic, normocephalic, normal inspection Eye exam: Present: normal appearance, PERRL, EOMI. Absent: scleral icterus, conjunctival injection, periorbital swelling ENT exam: Present: normal exam, mucous membranes moist Neck exam: Present: normal inspection. Absent: tenderness, meningismus, lymphadenopathy Respiratory exam: Present: normal lung sounds bilaterally. Absent: respiratory distress, wheezes, rales, rhonchi, stridor Cardiovascular Exam: Present: regular rate, normal rhythm, normal heart sounds. Absent: systolic murmur, diastolic murmur, rubs, gallop, clicks GI/Abdominal exam: Present: soft, normal bowel sounds. Absent: distended, tenderness, guarding, rebound, rigid Extremities exam: Present: normal inspection, full ROM, normal capillary refill. Absent: tenderness, pedal edema, joint swelling, calf tenderness Back exam: Present: normal inspection Neurological exam: Present: alert, oriented X3, CN II-XII intact Psychiatric exam: Present: normal affect, normal mood Skin exam: Present: warm, dry, intact, normal color. Absent: rash Course Vital Signs 10/24/20 19:27 Temperature 98.7 F Pulse Rate 93 Respiratory 18 Rate Blood Pressure 128/83 O2 Sat by Pulse 99 Oximetry Medical Decision Making - Medical Decision Making 24 male complaining of heart palpitations. EKG, needlemaker, labs ordered. X-ray: Unremarkable Labs unremarkable Case discussed with Dr. Weldon, decided that patient to discharge home. - Lab Data Result diagrams: 10/24/20 20:11 10/24/20 20:11 Lab Results 10/24/20 10/24/20 10/24/20 Range/Units 20:11 20:11 20:11 WBC 8.6 (3.8-10.6) k/uL RBC 4.80 (4.30-5.90) m/uL Hgb 14.6 (13.0-17.5) gm/dL Hct 42.4 (39.0-53.0) % MCV 88.3 (80.0-100.0) fL MCH 30.4 (25.0-35.0) pg MCHC 34.4 (31.0-37.0) g/dL RDW 13.0 (11.5-15.5) % Plt Count 146 L (150-450) k/uL MPV 10.8 Neutrophils % 61 % Lymphocytes % 24 % Monocytes % 10 % Eosinophils % 2 % Basophils % 1 % Neutrophils # 5.2 (1.3-7.7) k/uL Lymphocytes # 2.1 (1.0-4.8) k/uL Monocytes # 0.9 (0-1.0) k/uL Eosinophils # 0.1 (0-0.7) k/uL Basophils # 0.1 (0-0.2) k/uL PT 10.6 (9.0-12.0) sec INR 1.0 (<1.2) APTT 26.4 (22.0-30.0) sec Sodium 139 (137-145) mmol/L Potassium 3.8 (3.5-5.1) mmol/L Chloride 103 (98-107) mmol/L Carbon Dioxide 27 (22-30) mmol/L Anion Gap 9 mmol/L BUN 18 (9-20) mg/dL Creatinine 0.76 (0.66-1.25) mg/dL Est GFR (CKD-EPI)AfAm >90 (>60 ml/min/1.73 sqM) Est GFR (CKD-EPI)NonAf >90 (>60 ml/min/1.73 sqM) Glucose 119 H (74-99) mg/dL Calcium 9.4 (8.4-10.2) mg/dL Magnesium 2.0 (1.6-2.3) mg/dL Total Bilirubin 0.4 (0.2-1.3) mg/dL AST 24 (17-59) U/L ALT 18 (4-49) U/L Alkaline Phosphatase 71 (38-126) U/L Total Protein 7.2 (6.3-8.2) g/dL Albumin 4.6 (3.5-5.0) g/dL Urine Color Urine Appearance (Clear) Urine pH (5.0-8.0) Ur Specific [place] (1.001-1.035) Urine Protein (Negative) Urine Glucose (UA) (Negative) Urine Ketones (Negative) Urine Blood (Negative) Urine Nitrite (Negative) Urine Bilirubin (Negative) Urine Urobilinogen (<2.0) mg/dL Ur Leukocyte Esterase (Negative) 10/24/20 Range/Units 20:20 WBC (3.8-10.6) k/uL RBC (4.30-5.90) m/uL Hgb (13.0-17.5) gm/dL Hct (39.0-53.0) % MCV (80.0-100.0) fL MCH (25.0-35.0) pg MCHC (31.0-37.0) g/dL RDW (11.5-15.5) % Plt Count (150-450) k/uL MPV Neutrophils % % Lymphocytes % % Monocytes % % Eosinophils % % Basophils % % Neutrophils # (1.3-7.7) k/uL Lymphocytes # (1.0-4.8) k/uL Monocytes # (0-1.0) k/uL Eosinophils # (0-0.7) k/uL Basophils # (0-0.2) k/uL PT (9.0-12.0) sec INR (<1.2) APTT (22.0-30.0) sec Sodium (137-145) mmol/L Potassium (3.5-5.1) mmol/L Chloride (98-107) mmol/L Carbon Dioxide (22-30) mmol/L Anion Gap mmol/L BUN (9-20) mg/dL Creatinine (0.66-1.25) mg/dL Est GFR (CKD-EPI)AfAm (>60 ml/min/1.73 sqM) Est GFR (CKD-EPI)NonAf (>60 ml/min/1.73 sqM) Glucose (74-99) mg/dL Calcium (8.4-10.2) mg/dL Magnesium (1.6-2.3) mg/dL Total Bilirubin (0.2-1.3) mg/dL AST (17-59) U/L ALT (4-49) U/L Alkaline Phosphatase (38-126) U/L Total Protein (6.3-8.2) g/dL Albumin (3.5-5.0) g/dL Urine Color Yellow Urine Appearance Clear (Clear) Urine pH 6.0 (5.0-8.0) Ur Specific [place] 1.028 (1.001-1.035) Urine Protein Trace H (Negative) Urine Glucose (UA) Negative (Negative) Urine Ketones Negative (Negative) Urine Blood Negative (Negative) Urine Nitrite Negative (Negative) Urine Bilirubin Negative (Negative) Urine Urobilinogen <2.0 (<2.0) mg/dL Ur Leukocyte Esterase Negative (Negative) - EKG Data -: EKG Interpreted by Ma EKG shows normal: sinus rhythm Rate: normal EKG Comments: Ventricular rate 84 bpm, NJ interval 144 ms, QRS buddhist 90 ms, QT/QTC 350/113 ms, PareT axes 42/23/23 No sinus rhythm, normal ECG - Radiology Data Radiology results: report reviewed, image reviewed No acute cardiopulmonary process Disposition Clinical Impression: Anxiety, Palpitations Disposition: HOME SELF-CARE Condition: Stable Instructions (If sedation given, give patient instructions): Heart Palpitations (ED), Abuse of Alcohol (DC) Additional Instructions: Please return to the Emergency Department if symptoms worsen or any other concerns. Follow-up with primary care 1-2 days. Avoid any strenuous activity for 1-2 days. Alcohol cessation to prevent further episodes. Is patient prescribed a controlled substance at d/c from ED?: No Referrals: Rodolfo Heard MD [Primary Care Provider] - 1-2 days Time of Disposition: 20:54
[2020-10-24 20:22] LABS: Basophils # (A) 0.1 k/uL (0-0.2); Basophils % (A) 1 %; Eosinophils # (A) 0.1 k/uL (0-0.7); Eosinophils % (A) 2 %; HCT 42.4 % (39.0-53.0); HGB 14.6 gm/dL (13.0-17.5); Lymphocytes # (A) 2.1 k/uL (1.0-4.8); Lymphocytes % (A) 24 %; MCH 30.4 pg (25.0-35.0); MCHC 34.4 g/dL (31.0-37.0); MCV 88.3 fL (80.0-100.0); Mean Platelet Volume 10.8; Monocytes # (A) 0.9 k/uL (0-1.0); Monocytes % (A) 10 %; Neutrophils # (A) 5.2 k/uL (1.3-7.7); Neutrophils % (A) 61 %; Platelet Count 146 k/uL (150-450); WBC 8.6 k/uL (3.8-10.6)
[2020-10-24 20:26] LABS: Appearance,Urine Clear (Clear); Bilirubin,Urine Negative (Negative); Blood,Urine Negative (Negative); Color,Urine Yellow; Glucose,Urine (UA) Negative (Negative); Ketones,Urine Negative (Negative); Leukocyte Esterase,Urine Negative (Negative); Nitrite,Urine Negative (Negative); Protein,Urine Trace (Negative); Specific Gravity,Urine 1.028 (1.001-1.035); Urobilinogen,Urine <2.0 mg/dL (<2.0)
[2020-10-24 20:32] LABS: ALT 18 U/L (4-49); AST 24 U/L (17-59); African American GFR (CKD) >90 (>60 ml/min/1.73 sqM); Albumin 4.6 g/dL (3.5-5.0); Alkaline Phosphatase 71 U/L (38-126); Anion Gap 9 mmol/L; Blood Urea Nitrogen 18 mg/dL (9-20); Calcium 9.4 mg/dL (8.4-10.2); Carbon Dioxide 27 mmol/L (22-30); Chloride 103 mmol/L (98-107); Glucose 119 mg/dL (74-99); Non-African American GFR(CKD) >90 (>60 ml/min/1.73 sqM); Potassium 3.8 mmol/L (3.5-5.1); Prothrombin Time 10.6 sec (9.0-12.0); Sodium 139 mmol/L (137-145); Total Bilirubin 0.4 mg/dL (0.2-1.3); Total Protein 7.2 g/dL (6.3-8.2)
[2020-10-24 20:33] LABS: Partial Thromboplastin Time 26.4 sec (22.0-30.0)
--- NOTE | 2020-10-24 20:43 | XR ---
EXAMINATION TYPE: XR chest 2V DATE OF EXAM: 10/24/2020 COMPARISON: NONE HISTORY: Chest pain. TECHNIQUE: Frontal and lateral views of the chest are obtained. FINDINGS: There is no focal air space opacity, pleural effusion, or pneumothorax seen. The cardiac silhouette size is within normal limits. The osseous structures are intact. IMPRESSION: No acute cardiopulmonary process.
[2020-10-24 21:23] VITALS: BP 121/75; PULSE 82
== END 2020-10-24 21:23 | disposition home or self-care (01) ==
LOC: EC 19:21
DX: R00.2 Palpitations (principal); F41.9 Anxiety disorder, unspecified; F17.200 Nicotine dependence, unspecified, uncomplicated; Z79.899 Other long term (current) drug therapy
CPT/HCPCS: 36415; 71046; 80053; 81003; 83735; 84484; 85025; 85610; 85730; 93005; 96360; 99285

== ENCOUNTER 2020-10-25 10:22 | Emergency (ER) | payer OTHER ==
[2020-10-25 10:26] VITALS: RESP 18; TEMP 98.5
[2020-10-25] MEDS ORDERED: KETOROLAC 15 MG/ML 1 ML VIAL IVP STA (10:55)
[2020-10-25] MEDS ORDERED: SODIUM CHLORIDE 0.9% 500 ML 500 ML IV STA (10:55)
--- NOTE | 2020-10-25 11:10 | ED ---
Abdominal Pain HPI - General Chief Complaint: Abdominal Pain Stated Complaint: Revisit abd pain Time Seen by Provider: 10/25/20 10:31 Source: patient Mode of arrival: ambulatory Limitations: no limitations - History of Present Illness Initial Comments: patient is a 24-year-old male presenting to emergency Department with complaints of left upper quadrant abdominal pain that has been intermittent for the past few months. Patient states he gets this pain occasionally but then it usually goes away. Patient states he woke up this morning and it was there and it seems more severe than usual. He states he had concerns for possible "appendicitis." Patient admits to some mild nausea, no vomiting, no diarrhea, no fever or chills. He states he used to abuse alcohol but no longer does. denies history of abdominal surgeries, no history kidney stones, no hematuria. Patient denies any chest pain, no shortness of breath. He denies any hematemesis. He has no further complaints. Upon arrival to the ER his vitals are stable. - Related Data Home Medications Medication Instructions Recorded Confirmed Ginseng 100 mg PO DAILY 10/25/20 10/25/20 Allergies Allergy/AdvReac Type Severity Reaction Status Date / Time No Known Allergies Allergy Verified 10/25/20 11:00 Review of Systems ROS Statement: Those systems with pertinent positive or pertinent negative responses have been documented in the HPI. ROS Other: All systems not noted in ROS Statement are negative. Past Medical History Past Medical History: No Reported History Additional Past Medical History / Comment(s): etoh abuse x 4 years. History of Any Multi-Drug Resistant Organisms: None Reported Past Surgical History: No Surgical Hx Reported Additional Past Surgical History / Comment(s): wisdom teeth Past Anesthesia/Blood Transfusion Reactions: No Reported Reaction Past Psychological History: Anxiety, Depression Smoking Status: Current every day smoker Past Alcohol Use History: Abuse, Daily Past Drug Use History: Marijuana - Past Family History Father Additional Family Medical History / Comment(s): Multiple sclerosis. Mother Family Medical History: No Reported History General Exam - General Exam Comments Initial Comments: GENERAL: Patient is well-developed and well-nourished. Patient is nontoxic and in no acute distress. HEAD: Atraumatic, normocephalic. EYES: Pupils equal round and reactive to light, extraocular movements intact, sclera anicteric, conjunctiva are normal. Eyelids were unremarkable. ENT: TMs normal, nares patent, oropharynx clear without exudates. Moist mucous membranes. NECK: Normal range of motion, supple without lymphadenopathy or JVD. LUNGS: Unlabored respirations. Breath sounds clear to auscultation bilaterally and equal. No wheezes rales or rhonchi. HEART: Regular rate and rhythm without murmurs, rubs or gallops. ABDOMEN: Patient has very mild pain in the left upper quadrant, no other areas of pain. Soft, normoactive bowel sounds. No guarding, no rebound. No masses appr eciated. : Deferred MUSCULOSKELETAL: Normal extremities with adequate strength and normal range of motion, no pitting or edema. No clubbing or cyanosis. NEUROLOGICAL: Patient is alert and oriented x 3. Motor and sensory are also intact. Cranial nerves II through XII grossly intact. Symmetrical smile. Normal speech, normal gait. PSYCH: Normal mood, normal affect. SKIN: Warm, Dry, normal turgor, no rashes or lesions noted. Limitations: no limitations Course Vital Signs 10/25/20 10/25/20 10/25/20 10:24 10:26 11:26 Temperature 98.5 F Pulse Rate 98 75 Respiratory 18 18 18 Rate Blood Pressure 136/82 133/90 O2 Sat by Pulse 99 99 Oximetry 10/25/20 12:19 Temperature 98.5 F Pulse Rate 72 Respiratory 18 Rate Blood Pressure 137/99 O2 Sat by Pulse 99 Oximetry Medical Decision Making - Medical Decision Making patient is a 24-year-old male here for left upper quadrant pain that has been intermittent over the past few months but more severe this morning. Mild nausea, no other areas of pain. No history of abdominal surgeries. Vitals are stable. Labs are unremarkable, normal lipase, urine is normal. The fluids and Toradol, domestic currently. Discussed with patient this is most likely gas pains or constipation. He can follow up with his regular doctor. Patient is stable for discharge. Patient is in agreement with this plan of care. Return parameters were discussed with the patient and they verbalized understanding. Case discussed with Dr. Moreira. - Lab Data Result diagrams: 10/25/20 11:15 10/25/20 11:15 Lab Results 10/25/20 10/25/20 10/25/20 Range/Units 11:15 11:15 11:15 WBC 9.8 (3.8-10.6) k/uL RBC 4.94 (4.30-5.90) m/uL Hgb 15.0 (13.0-17.5) gm/dL Hct 44.1 (39.0-53.0) % MCV 89.3 (80.0-100.0) fL MCH 30.3 (25.0-35.0) pg MCHC 33.9 (31.0-37.0) g/dL RDW 13.2 (11.5-15.5) % Plt Count 138 L (150-450) k/uL MPV 10.4 Neutrophils % 67 % Lymphocytes % 18 % Monocytes % 9 % Eosinophils % 3 % Basophils % 0 % Neutrophils # 6.6 (1.3-7.7) k/uL Lymphocytes # 1.7 (1.0-4.8) k/uL Monocytes # 0.9 (0-1.0) k/uL Eosinophils # 0.2 (0-0.7) k/uL Basophils # 0.0 (0-0.2) k/uL Sodium 141 (137-145) mmol/L Potassium 4.3 (3.5-5.1) mmol/L Chloride 103 (98-107) mmol/L Carbon Dioxide 27 (22-30) mmol/L Anion Gap 11 mmol/L BUN 16 (9-20) mg/dL Creatinine 0.71 (0.66-1.25) mg/dL Est GFR (CKD-EPI)AfAm >90 (>60 ml/min/1.73 sqM) Est GFR (CKD-EPI)NonAf >90 (>60 ml/min/1.73 sqM) Glucose 102 H (74-99) mg/dL Calcium 9.6 (8.4-10.2) mg/dL Total Bilirubin 0.4 (0.2-1.3) mg/dL AST 24 (17-59) U/L ALT 18 (4-49) U/L Alkaline Phosphatase 68 (38-126) U/L Total Protein 7.5 (6.3-8.2) g/dL Albumin 4.8 (3.5-5.0) g/dL Amylase 58 (30-110) U/L Lipase 78 (23-300) U/L Urine Color Yellow Urine Appearance Clear (Clear) Urine pH 7.5 (5.0-8.0) Ur Specific [place] 1.022 (1.001-1.035) Urine Protein Negative (Negative) Urine Glucose (UA) Negative (Negative) Urine Ketones Negative (Negative) Urine Blood Negative (Negative) Urine Nitrite Negative (Negative) Urine Bilirubin Negative (Negative) Urine Urobilinogen <2.0 (<2.0) mg/dL Ur Leukocyte Esterase Negative (Negative) Disposition Clinical Impression: Abdominal pain Disposition: HOME SELF-CARE Condition: Stable Instructions (If sedation given, give patient instructions): Abdominal Pain ( ED) Additional Instructions: Please return to the Emergency Department if symptoms worsen or any other concerns. Trial of omeprazole for stomach pains. Follow-up with your regular doctor. Is patient prescribed a controlled substance at d/c from ED?: No Referrals: Rodolfo Heard MD [Primary Care Provider] - 1-2 days
[2020-10-25 11:26] LABS: Appearance,Urine Clear (Clear); Bilirubin,Urine Negative (Negative); Blood,Urine Negative (Negative); Color,Urine Yellow; Glucose,Urine (UA) Negative (Negative); Ketones,Urine Negative (Negative); Leukocyte Esterase,Urine Negative (Negative); Nitrite,Urine Negative (Negative); PH, Urine 7.5 (5.0-8.0); Protein,Urine Negative (Negative); Specific Gravity,Urine 1.022 (1.001-1.035); Urobilinogen,Urine <2.0 mg/dL (<2.0)
[2020-10-25 11:28] LABS: Basophils % (A) 0 %; Eosinophils # (A) 0.2 k/uL (0-0.7); Eosinophils % (A) 3 %; HCT 44.1 % (39.0-53.0); Lymphocytes # (A) 1.7 k/uL (1.0-4.8); Lymphocytes % (A) 18 %; MCH 30.3 pg (25.0-35.0); MCHC 33.9 g/dL (31.0-37.0); MCV 89.3 fL (80.0-100.0); Mean Platelet Volume 10.4; Monocytes # (A) 0.9 k/uL (0-1.0); Monocytes % (A) 9 %; Neutrophils # (A) 6.6 k/uL (1.3-7.7); Neutrophils % (A) 67 %; Platelet Count 138 k/uL (150-450); RBC 4.94 m/uL (4.30-5.90); RDW 13.2 % (11.5-15.5); WBC 9.8 k/uL (3.8-10.6)
[2020-10-25 11:42] LABS: ALT 18 U/L (4-49); AST 24 U/L (17-59); African American GFR (CKD) >90 (>60 ml/min/1.73 sqM); Albumin 4.8 g/dL (3.5-5.0); Alkaline Phosphatase 68 U/L (38-126); Amylase 58 U/L (30-110); Anion Gap 11 mmol/L; Blood Urea Nitrogen 16 mg/dL (9-20); Calcium 9.6 mg/dL (8.4-10.2); Carbon Dioxide 27 mmol/L (22-30); Chloride 103 mmol/L (98-107); Glucose 102 mg/dL (74-99); Lipase 78 U/L (23-300); Non-African American GFR(CKD) >90 (>60 ml/min/1.73 sqM); Potassium 4.3 mmol/L (3.5-5.1); Sodium 141 mmol/L (137-145); Total Bilirubin 0.4 mg/dL (0.2-1.3); Total Protein 7.5 g/dL (6.3-8.2)
[2020-10-25 12:19] VITALS: BP 137/99; PULSE 72
== END 2020-10-25 12:19 | disposition home or self-care (01) ==
LOC: EC 10:22
DX: R10.12 Left upper quadrant pain (principal); R11.0 Nausea; F17.200 Nicotine dependence, unspecified, uncomplicated
CPT/HCPCS: 36415; 80053; 82150; 83690; 85025; 81003; 99284; 96374; J1885

== ENCOUNTER 2020-12-26 23:52 | Emergency (ER) | payer OTHER ==
[2020-12-27] MEDS ORDERED: BACITRACIN OINT 1 EACH PACKET TOPICAL ONE (00:15)
[2020-12-27] MEDS ORDERED: LIDOCAINE 1% INJ 10MG/ML (20 ML MDV) SQ ONE (00:15)
--- NOTE | 2020-12-27 01:10 | ED ---
Psych HPI <Sanchez Tillman - Last Filed: 12/27/20 13:31> - General Source: police, EMS Mode of arrival: EMS <Linn Castellano - Last Filed: 12/28/20 01:08> - General Chief Complaint: Psychiatric Symptoms Stated Complaint: mental health Time Seen by Provider: 12/27/20 00:15 - History of Present Illness Initial Comments: Patient is a 25-year-old male presenting to the emergency department via EMS for a psychiatric evaluation. Patient admits to drinking this evening, states he "hearing and seeing paranormal activity." Police did petition the patient as he was stating "he will kill himself." Patient has lacerations on his right hand, per ems, there was a large amount of blood at the sceen. They believe he punched a TV. He is up to date with his tetanus. He is not on blood thinners. He is having sucidial ideations. Denies homicidal thoughts. He has no further complaints. (Linn Castellano) - Related Data Home Medications Medication Instructions Recorded Confirmed No Known Home Medications 12/27/20 12/27/20 Allergies Allergy/AdvReac Type Severity Reaction Status Date / Time No Known Allergies Allergy Verified 12/27/20 07:10 Review of Systems ROS Other: All systems not noted in ROS Statement are negative. <Sanchez Tillman - Last Filed: 12/27/20 13:31> ROS Other: All systems not noted in ROS Statement are negative. <Linn Castellano - Last Filed: 12/28/20 01:08> ROS Statement: Those systems with pertinent positive or pertinent negative responses have been documented in the HPI. Past Medical History Past Medical History: No Reported History Additional Past Medical History / Comment(s): etoh abuse x 4 years. History of Any Multi-Drug Resistant Organisms: None Reported Past Surgical History: No Surgical Hx Reported Additional Past Surgical History / Comment(s): wisdom teeth Past Anesthesia/Blood Transfusion Reactions: No Reported Reaction Past Psychological History: Anxiety, Depression Smoking Status: Current every day smoker Past Alcohol Use History: Abuse, Daily Past Drug Use History: Marijuana - Past Family History Father Additional Family Medical History / Comment(s): Multiple sclerosis. Mother Family Medical History: No Reported History <Linn Castellano - Last Filed: 12/28/20 01:08> General Exam Limitations: altered mental status <Linn Castellano - Last Filed: 12/28/20 01:08> - General Exam Comments Initial Comments: GENERAL: Patient is well-developed and well-nourished. Patient is nontoxic and in no acute distress, appears intoxicated. HEAD: Atraumatic, normocephalic. EYES: Pupils equal round and reactive to light, extraocular movements intact, sclera anicteric, conjunctiva are normal. Eyelids were unremarkable. ENT: Nares patent, oropharynx clear without exudates. Moist mucous membranes. NECK: Normal range of motion, supple without lymphadenopathy or JVD. LUNGS: Unlabored respirations. Breath sounds clear to auscultation bilaterally and equal. No wheezes rales or rhonchi. HEART: Regular rate and rhythm without murmurs, rubs or gallops. ABDOMEN: Soft, nontender, normoactive bowel sounds. No guarding, no rebound. No masses appreciated. : Deferred MUSCULOSKELETAL: Normal extremities with adequate strength and normal range of motion, no pitting or edema. No clubbing or cyanosis. NEUROLOGICAL: Patient is alert and oriented x 3. Motor and sensory are also intact. Cranial nerves II through XII grossly intact. Symmetrical smile. Normal speech, normal gait. PSYCH: Patient appears intoxicated SKIN: Warm, Dry, normal turgor, no rashes. Patient has a 1 cm laceration to the dorsal aspect of his right middle finger and 1 cm laceration of the right ring finger. Both are near the IP joints, bleeding is controlled with a bandage. (Linn Castellano) Course <Linn Castellano - Last Filed: 12/28/20 01:08> Vital Signs 12/27/20 12/27/20 00:08 10:02 Temperature 98.9 F 97.8 F Pulse Rate 108 H 90 Respiratory 20 16 Rate Blood Pressure 125/83 129/82 O2 Sat by Pulse 95 100 Oximetry - Reevaluation(s) Reevaluation #1: 12/27/20 02:21 Patient went to the restroom and became very agitated, making threats, wanting to leave, patient was not cooperative and patient needed to be restrained. Very angry, threats towards staff. [id number] was completed. Patient given Ativan and Benadryl. (Linn Castellano) Procedures - Laceration Laceration #1 Consent Obtained: verbal consent Indication: laceration Site: hand (Right middle finger, dorsal aspect) Size (cm): 1 Description: linear Depth: simple, single layer Pre-repair: irrigated extensively Type of Sutures: nylon Size of Sutures: 5-0 Number of Sutures: 3 Technique: simple, interrupted Patient Tolerated Procedure: well Laceration #2 Consent Obtained: verbal consent Indication: laceration Site: hand (Right ring finger, dorsal aspect) Size (cm): 1 Description: linear Depth: simple, single layer Pre-repair: irrigated extensively Type of Sutures: nylon Size of Sutures: 5-0 Number of Sutures: 2 Patient Tolerated Procedure: well - Restraint - Face to Face Restraint Occurrence 1 Patient's Immediate Situation: Endangers self safety, Endangers others' safety, Endangers staff safety, Violent behavior, Other (see comment) (Patient making verbal threats to staff) Patient's Reaction to the Intervention: Uncooperative, Angry, Hostile, Aggressive, Combative Patient's Medical & Behavioral Condition: Anxious, Agitated, Paranoid, Flight of ideas, Bizarre behavior Face to Face Eval of Restraint Date: 12/27/20 Face to Face Eval of Restraint Time: 01:56 <Linn Castellano - Last Filed: 12/28/20 01:08> - Laceration Laceration #1 Additional Comments: Patient declined any lidocaine. Tolerated procedure well. (Linn Castellano) Laceration #2 Additional Comments: Patient declined any lidocaine, he tolerated procedure well. (Linn Castellano) Medical Decision Making <Sanchez Tillman - Last Filed: 12/27/20 13:31> <Linn Castellano - Last Filed: 12/28/20 01:08> - Medical Decision Making Patient was evaluated by EPS and was given and agreed to a safety plan (Sanchez Tillman) Patient is a 25-year-old male brought in by police and EMS for psychiatric evaluation. Patient was petitioned by police. Patient has been drinking, making suicidal threats, he also punched a TV and has 2, 1 cm lacerations to his right middle and ring finger. They both were repaired, he tolerated procedure well. (Linn Castellano) - Lab Data Lab Results 12/27/20 Range/Units 00:40 Urine Opiates Screen Not Detected (NotDetected) Ur Oxycodone Screen Not Detected (NotDetected) Urine Methadone Screen Not Detected (NotDetected) Ur Propoxyphene Screen Not Detected (NotDetected) Ur Barbiturates Screen Not Detected (NotDetected) U Tricyclic Antidepress Not Detected (NotDetected) Ur Phencyclidine Scrn Not Detected (NotDetected) Ur Amphetamines Screen Not Detected (NotDetected) U Methamphetamines Scrn Not Detected (NotDetected) U Benzodiazepines Scrn Not Detected (NotDetected) Urine Cocaine Screen Not Detected (NotDetected) U Marijuana (THC) Screen Not Detected (NotDetected) Disposition Is patient prescribed a controlled substance at d/c from ED?: No Time of Disposition: 13:30 <Sanchez Tillman - Last Filed: 12/27/20 13:31> <Linn Castellano - Last Filed: 12/28/20 01:08> Clinical Impression: Alcohol intoxication Disposition: HOME SELF-CARE Instructions (If sedation given, give patient instructions): Alcohol Intoxication (ED), Abuse of Alcohol (ED) Referrals: Rodolfo Heard MD [Primary Care Provider] - 1-2 days
[2020-12-27] MEDS ORDERED: diphenhydrAMINE 50 MG/ML 1 ML VIAL IM STA (01:52)
[2020-12-27] MEDS ORDERED: LORazepam 2 MG/ML INJ IM STA (01:52)
[2020-12-27 02:08] LABS: Amphetamine Screen,Urine Not Detected (NotDetected); Barbiturate Screen,Urine Not Detected (NotDetected); Benzodiazepines Screen,Urine Not Detected (NotDetected); Cocaine Screen,Urine Not Detected (NotDetected); Methadone Screen, Urine Not Detected (NotDetected); Opiate Screen,Urine Not Detected (NotDetected); Oxycodone Screen, Urine Not Detected (NotDetected); Phencyclidine Screen,Urine Not Detected (NotDetected); Tricyclic Antidepressant,Urine Not Detected (NotDetected); Urn Cannabinoid Scrn Not Detected (NotDetected)
[2020-12-27 10:04] VITALS: BP 129/82; PULSE 90; RESP 16; TEMP 97.8
== END 2020-12-27 14:05 | disposition home or self-care (01) ==
LOC: EC 23:52 → SUPCPDRO 23:52 → EC 12-27 14:05
DX: S61.214A Laceration without foreign body of right ring finger without damage to nail, initial encounter (principal); S61.212A Laceration without foreign body of right middle finger without damage to nail, initial encounter; F10.129 Alcohol abuse with intoxication, unspecified; F41.9 Anxiety disorder, unspecified; F32.9 Major depressive disorder, single episode, unspecified; F17.200 Nicotine dependence, unspecified, uncomplicated; T14.91XA Suicide attempt, initial encounter
CPT/HCPCS: 99283; 96372; 12001; 82075; 80306; J2060; J1200; J2001; 99285

== ENCOUNTER → 2021-03-30 | Outpatient (CLI) | payer OTHER | END | disposition home or self-care (01) | LOC: RADECHMAIN 12:07 | PROVIDERS: ATTEND Pediatrics | DX: R00.2 Palpitations (principal); R55 Syncope and collapse | CPT/HCPCS: 93225; 93226 ==

== ENCOUNTER 2022-01-13 13:10 | Emergency (ER) | payer OTHER ==
[2022-01-13 13:14] VITALS: BP 116/70; PULSE 82; RESP 20; TEMP 98.6
[2022-01-13 13:37] LABS: Appearance,Urine Clear (Clear); Bilirubin,Urine Negative (Negative); Blood,Urine Negative (Negative); Color,Urine Yellow; Glucose,Urine (UA) Negative (Negative); Ketones,Urine Negative (Negative); Leukocyte Esterase,Urine Negative (Negative); Nitrite,Urine Negative (Negative); PH, Urine 5.5 (5.0-8.0); Protein,Urine Trace (Negative); Specific Gravity,Urine 1.029 (1.001-1.035)
[2022-01-13 13:49] LABS: Amphetamine Screen,Urine Not Detected (NotDetected); Barbiturate Screen,Urine Not Detected (NotDetected); Benzodiazepines Screen,Urine Not Detected (NotDetected); Cocaine Screen,Urine Not Detected (NotDetected); Methadone Screen, Urine Not Detected (NotDetected); Opiate Screen,Urine Not Detected (NotDetected); Oxycodone Screen, Urine Not Detected (NotDetected); Phencyclidine Screen,Urine Not Detected (NotDetected); Tricyclic Antidepressant,Urine Not Detected (NotDetected); Urn Cannabinoid Scrn Detected (NotDetected)
--- NOTE | 2022-01-13 14:10 | ED ---
General Adult HPI - General Chief complaint: Recheck/Abnormal Lab/Rx Stated complaint: wants urine drug screen Time Seen by Provider: 01/13/22 14:00 Source: patient, RN notes reviewed Mode of arrival: ambulatory Limitations: no limitations - History of Present Illness Initial comments: 26-year-old male presents to the emergency room for urine drug screen for his probation. Patient states he does have a medical marijuana card but denies any other drug use. He has no other complaints. No nausea vomiting diarrhea or fevers no chest pain or difficulty breathing. Severity scale (1-10): 0 Associated Symptoms: denies other symptoms Treatments Prior to Arrival: none - Related Data Home Medications Medication Instructions Recorded Confirmed No Known Home Medications 12/27/20 12/27/20 Allergies Allergy/AdvReac Type Severity Reaction Status Date / Time No Known Allergies Allergy Verified 01/13/22 13:14 Review of Systems ROS Statement: Those systems with pertinent positive or pertinent negative responses have been documented in the HPI. ROS Other: All systems not noted in ROS Statement are negative. Past Medical History Past Medical History: No Reported History Additional Past Medical History / Comment(s): etoh abuse x 4 years. History of Any Multi-Drug Resistant Organisms: None Reported Past Surgical History: No Surgical Hx Reported Additional Past Surgical History / Comment(s): wisdom teeth Past Anesthesia/Blood Transfusion Reactions: No Reported Reaction Past Psychological History: Anxiety, Depression Smoking Status: Current every day smoker Past Alcohol Use History: Abuse, Daily Past Drug Use History: Marijuana - Past Family History Father Additional Family Medical History / Comment(s): Multiple sclerosis. Mother Family Medical History: No Reported History General Exam Limitations: no limitations General appearance: alert, in no apparent distress Head exam: Present: atraumatic Eye exam: Present: normal appearance. Absent: scleral icterus, conjunctival injection Neck exam: Present: normal inspection, full ROM. Absent: tenderness, meningismus, lymphadenopathy Respiratory exam: Present: normal lung sounds bilaterally. Absent: respiratory distress, accessory muscle use Cardiovascular Exam: Present: regular rate Neurological exam: Present: alert, oriented X3 Psychiatric exam: Present: normal affect, normal mood Skin exam: Present: warm, dry, normal color. 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 Patient does smoke marijuana has a medical marijuana card he states. He denies any other drug use, there are no other drugs noted in his urine. Patient will be discharged home. - Lab Data Lab Results 01/13/22 Range/Units 13:18 Urine Color Yellow Urine Appearance Clear (Clear) Urine pH 5.5 (5.0-8.0) Ur Specific [place] 1.029 (1.001-1.035) Urine Protein Trace H (Negative) Urine Glucose (UA) Negative (Negative) Urine Ketones Negative (Negative) Urine Blood Negative (Negative) Urine Nitrite Negative (Negative) Urine Bilirubin Negative (Negative) Urine Urobilinogen 2.0 (<2.0) mg/dL Ur Leukocyte Esterase Negative (Negative) Urine Opiates Screen Not Detected (NotDetected) Ur Oxycodone Screen Not Detected (NotDetected) Urine Methadone Screen Not Detected (NotDetected) Ur Propoxyphene Screen Not Detected (NotDetected) Ur Barbiturates Screen Not Detected (NotDetected) U Tricyclic Antidepress Not Detected (NotDetected) Ur Phencyclidine Scrn Not Detected (NotDetected) Ur Amphetamines Screen Not Detected (NotDetected) U Methamphetamines Scrn Not Detected (NotDetected) U Benzodiazepines Scrn Not Detected (NotDetected) Urine Cocaine Screen Not Detected (NotDetected) U Marijuana (THC) Screen Detected H (NotDetected) Disposition Clinical Impression: Encounter for laboratory test Disposition: HOME SELF-CARE Condition: Good Additional Instructions: Follow-up with the primary care doctor as needed and return to the emergency room with any new or concerning symptoms Is patient prescribed a controlled substance at d/c from ED?: No Referrals: Rodolfo Heard MD [Primary Care Provider] - 1-2 days Time of Disposition: 14:08
== END 2022-01-13 14:23 | disposition home or self-care (01) ==
LOC: EC 13:10
DX: Z01.812 Encounter for preprocedural laboratory examination (principal); F17.200 Nicotine dependence, unspecified, uncomplicated
CPT/HCPCS: 80306; 81003; 82075; 99283

== ENCOUNTER 2024-01-15 22:22 | Emergency (ER) | payer OTHER ==
[2024-01-15] MEDS: PROPARACAINE 0.5% OPHTH DROPS 15 ML BTL RIGHT EYE STA (23:15)
[2024-01-15] MEDS: FLUORESCEIN STRIPS 1 MG STRIP RIGHT EYE ONE (23:15)
[2024-01-15 23:19] VITALS: RESP 18
[2024-01-15] MEDS: SULFACETAMIDE SOD 10% OPHTH DROPS 15 ML BTL RIGHT EYE STA (23:40)
[2024-01-15] MEDS: KETOROLAC 0.5% OPHTH DROPS 5 ML BTL RIGHT EYE STA (23:40)
--- NOTE | 2024-01-15 23:40 | ED ---
Eye Problem HPI - General Chief complaint: Eye Problems Stated complaint: Right eye injury Time Seen by Provider: 01/15/24 22:30 Source: patient Mode of arrival: ambulatory Limitations: no limitations - History of Present Illness Initial comments: 28-year-old male presenting with chief complaint of right thigh pain. Patient states that yesterday he was scratching his face when his hand slipped and scratched his right eye. He states that since then he has had pain, watering, light sensitivity, burning sensation, foreign body sensation, blurry vision. No vision loss, flashes, floaters, periorbital swelling, purulent discharge. He is not a contact lens wear - Related Data Home Medications Medication Instructions Recorded Confirmed No Known Home Medications 12/27/20 12/27/20 Allergies Allergy/AdvReac Type Severity Reaction Status Date / Time No Known Allergies Allergy Verified 01/15/24 22:28 Review of Systems ROS Statement: Those systems with pertinent positive or pertinent negative responses have been documented in the HPI. ROS Other: All systems not noted in ROS Statement are negative. Past Medical History Past Medical History: No Reported History Additional Past Medical History / Comment(s): etoh abuse x 4 years. History of Any Multi-Drug Resistant Organisms: None Reported Past Surgical History: No Surgical Hx Reported Additional Past Surgical History / Comment(s): wisdom teeth Past Anesthesia/Blood Transfusion Reactions: No Reported Reaction Past Psychological History: Anxiety, Depression Smoking Status: Current every day smoker Past Alcohol Use History: Abuse, Daily Past Drug Use History: Marijuana - Past Family History Father Additional Family Medical History / Comment(s): Multiple sclerosis. Mother Family Medical History: No Reported History General Exam Limitations: no limitations General appearance: alert, in no apparent distress Head exam: Present: atraumatic, normocephalic Eye exam: Present: PERRL, EOMI, conjunctival injection. Absent: periorbital swelling, periorbital tenderness Pupils: Present: normal accommodation Neck exam: Present: normal inspection. Absent: meningismus Respiratory exam: Absent: respiratory distress Cardiovascular Exam: Present: regular rate Neurological exam: Present: alert, oriented X3 Psychiatric exam: Present: normal affect, normal mood Skin exam: Present: warm, dry Course Vital Signs 01/15/24 01/15/24 22:26 23:45 Temperature 98.3 F 98.1 F Pulse Rate 71 72 Respiratory 18 18 Rate Blood Pressure 121/82 124/84 O2 Sat by Pulse 98 98 Oximetry Medical Decision Making - Medical Decision Making Was pt. sent in by a medical professional or institution (BAILEY Hatch, NON DESTRUCTIVE EVALUATION TECHNICIAN, urgent care, hospital, or care home...) When possible be specific @ -No Did you speak to anyone other than the patient for history (EMS, parent, family, police, friend...)? What history was obtained from this source @ -No Did you review nursing and triage notes (agree or disagree)? Why? @ -I reviewed and agree with nursing and triage notes Were old charts reviewed (outside hosp., previous admission, EMS record, old EKG, old radiological studies, urgent care reports/EKG's, care home records)? Report findings @ -No old charts were reviewed Differential Diagnosis (chest pain, altered mental status, abdominal pain women, abdominal pain men, vaginal bleeding, weakness, fever, dyspnea, syncope, headache, dizziness, GI bleed, back pain, seizure, CVA, palpatations, mental health, musculoskeletal)? @ -Differential includes corneal abrasion, corneal ulcer, foreign body, conjunctivitis, not an all-inclusive list EKG interpreted by me (3pts min.). @ -As above X-rays interpreted by me (1pt min.). @ -None done CT interpreted by me (1pt min.). @ -None done U/S interpreted by me (1pt. min.). @ -None done What testing was considered but not performed or refused? (CT, X-rays, U/S, labs)? Why? @ -None What meds were considered but not given or refused? Why? @ -None Did you discuss the management of the patient with other professionals (professionals i.e. BAILEY Hatch, NON DESTRUCTIVE EVALUATION TECHNICIAN, lab, RT, psych nurse, social media executive, import/export analyst, teacher, risk control officer, heel caser)? Give summary @ -No Was smoking cessation discussed for >3mins.? @ -No Was critical care preformed (if so, how long)? @ -No Were there social determinants of health that impacted care today? How? (Homelessness, low income, unemployed, alcoholism, drug addiction, transportation, low edu. Level, literacy, decrease access to med. care, residential, rehab)? @ -No Was there de-escalation of care discussed even if they declined (Discuss DNR or withdrawal of care, Hospice)? DNR status @ -No What co-morbidities impacted this encounter? (DM, HTN, Smoking, COPD, CAD, Cancer, CVA, ARF, Chemo, Hep., AIDS, mental health diagnosis, sleep apnea, morbid obesity)? @ -None Was patient admitted / discharged? Hospital course, mention meds given and route, prescriptions, significant lab abnormalities, going to OR and other pertinent info. @ -28-year-old male presenting with chief complaint of he scratched his eye yesterday. History and physical exam are conducted. Patient does have scleral injection and light sensitivity. Proparacaine and fluorescein is applied and the eye is examined under the Frausto lamp, there is a large corneal abrasion seen patient does not wear contact lenses. He is started on sulfacetamide and ketorolac eyedrops. Instructed to follow-up with ophthalmology. Discharged home. Follow-up with PCP. Report back to ER with any new or worsening symptoms. Discussed return parameters and answered all questions. Patient conveyed verbal understanding and agreed to the plan. I discussed this case in detail with my attending Dr. Davidson Undiagnosed new problem with uncertain prognosis? @ -No Drug Therapy requiring intensive monitoring for toxicity (Heparin, Nitro, Insulin, Cardizem)? @ -No Were any procedures done? @ -No Diagnosis/symptom? @ -Corneal abrasion Acute, or Chronic, or Acute on Chronic? @ -Acute Uncomplicated (without systemic symptoms) or Complicated (systemic symptoms)? @ -Uncomplicated Side effects of treatment? @ -No Exacerbation, Progression, or Severe Exacerbation? @ -No Poses a threat to life or bodily function? How? (Chest pain, [place], [place], pneumonia, PE, COPD, DKA, ARF, appy, cholecystitis, CVA, Diverticulitis, Homicidal, Suicidal, threat to staff... and all critical care pts) @ -Low likelihood Disposition Clinical Impression: Corneal abrasion Disposition: HOME SELF-CARE Condition: Good Instructions (If sedation given, give patient instructions): Corneal Abrasion (ED) Additional Instructions: Follow-up with PCP and ophthalmology. Report back to ER with any new or worsening symptoms. Apply 2 sulfacetamide eyedrops into the affected eye 4 times daily for 5 days. To prevent infection. Apply 1 ketorolac eyedrop to the affected eye up to 4 times daily as needed for pain Is patient prescribed a controlled substance at d/c from ED?: No Referrals: None,Stated [Primary Care Provider] - 1-2 days Christiano Lopez MD [STAFF PHYSICIAN] - 1-2 days Gonzalez Fischer MD [STAFF PHYSICIAN] - 1-2 days Time of Disposition: 23:27
[2024-01-15 23:56] VITALS: BP 124/84; PULSE 72; TEMP 98.1
== END 2024-01-15 23:45 | disposition home or self-care (01) ==
LOC: EC 22:22
DX: S05.01XA Injury of conjunctiva and corneal abrasion without foreign body, right eye, initial encounter (principal); F17.200 Nicotine dependence, unspecified, uncomplicated; F12.90 Cannabis use, unspecified, uncomplicated; W50.0XXA Accidental hit or strike by another person, initial encounter
CPT/HCPCS: 99283

== ENCOUNTER 2024-08-18 13:29 | Inpatient (IN) | payer OTHER ==
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
[2024-08-18 15:58] LABS: Amphetamine Screen,Urine Not Detected (NotDetected); Barbiturate Screen,Urine Not Detected (NotDetected); Benzodiazepines Screen,Urine Not Detected (NotDetected); Cocaine Screen,Urine Not Detected (NotDetected); Methadone Screen, Urine Not Detected (NotDetected); Opiate Screen,Urine Not Detected (NotDetected); Oxycodone Screen, Urine Not Detected (NotDetected); Phencyclidine Screen,Urine Not Detected (NotDetected); Tricyclic Antidepressant,Urine Not Detected (NotDetected); Urn Cannabinoid Scrn Detected (NotDetected)
[2024-08-18] MEDS: CALCIUM CARBONATE 500 MG CHEWABLE PO ONE (16:26)
[2024-08-18] MEDS ORDERED: MAGNESIUM HYDROXIDE 2,400 MG/30 ML CUP PO PRN (19:17)
[2024-08-18] MEDS ORDERED: IBUPROFEN 600 MG TAB PO PRN (19:17)
[2024-08-18] MEDS ORDERED: HALOPERIDOL LACTATE 5 MG/ML 1 ML VIAL IM PRN (19:17)
[2024-08-18] MEDS ORDERED: haloperidoL 5 MG TAB PO PRN (19:17)
[2024-08-18] MEDS ORDERED: LORazepam 2 MG/ML INJ IM PRN (19:17)
[2024-08-18] MEDS ORDERED: ACETAMINOPHEN TAB 325 MG TAB PO PRN (19:17)
[2024-08-18] MEDS ORDERED: MAG HYDROX/AL HYDROX/SIMETH 355 ML BOTTLE PO PRN (19:17)
[2024-08-18] MEDS ORDERED: LORazepam 1 MG TAB PO PRN (19:17)
[2024-08-19 02:01] VITALS: BP 128/96; PULSE 98; RESP 18; TEMP 96.3
[2024-08-19 08:06] LABS: Basophils # (A) 0.1 k/uL (0-0.2); Basophils % (A) 1 %; Eosinophils # (A) 0.4 k/uL (0-0.7); Eosinophils % (A) 5 %; HCT 46.3 % (39.0-53.0); HGB 15.3 gm/dL (13.0-17.5); Lymphocytes # (A) 2.4 k/uL (1.0-4.8); Lymphocytes % (A) 30 %; MCH 29.2 pg (25.0-35.0); MCV 88.5 fL (80.0-100.0); Mean Platelet Volume 10.1; Monocytes # (A) 0.8 k/uL (0-1.0); Monocytes % (A) 9 %; Neutrophils # (A) 4.2 k/uL (1.3-7.7); Neutrophils % (A) 52 %; Platelet Count 168 k/uL (150-450); RBC 5.23 m/uL (4.30-5.90); RDW 13.7 % (11.5-15.5); WBC 8.2 k/uL (3.8-10.6)
[2024-08-19 08:37] LABS: ALT 17 U/L (4-49); AST 24 U/L (17-59); African American GFR (CKD) >90 (>60 ml/min/1.73 sqM); Albumin 4.8 g/dL (3.5-5.0); Alkaline Phosphatase 77 U/L (38-126); Anion Gap 10 mmol/L; Bilirubin, Delta 0.1 mg/dL (0.0-0.2); Bilirubin,Unconjugated 0.6 mg/dL (0.0-1.1); Blood Urea Nitrogen 16 mg/dL (9-20); Calcium 9.4 mg/dL (8.4-10.2); Carbon Dioxide 26 mmol/L (22-30); Chloride 103 mmol/L (98-107); Glucose 92 mg/dL (74-99); Non-African American GFR(CKD) >90 (>60 ml/min/1.73 sqM); Potassium 4.2 mmol/L (3.5-5.1); Sodium 139 mmol/L (137-145); Total Bilirubin 0.7 mg/dL (0.2-1.3); Total Protein 7.6 g/dL (6.3-8.2)
[2024-08-19] MEDS: ARIPiprazole 5 MG TAB PO SCH (11:24)
[2024-08-19] MEDS: NICOTINE 14MG/24HR PATCH TRANSDERM SCH (11:25)
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
[2024-08-19 19:35] LABS: Chol/HDL Ratio 3.78 Ratio; LDL Cholesterol,Calculated 99.3 mg/dL (0.0-131.0)
--- NOTE | 2024-08-20 01:36 | P.CONS ---
History of Present Illness - Reason for Consult Consult date: 08/20/24 - History of Present Illness The patient is a 28-year-old male with a PMH of marijuana and tobacco abuse and history of schizophrenia, anxiety, and depression who presents to the emergency room for hallucinations. The patient was subsequently admitted to the mental health unit where he was seen and evaluated. The patient reports that he had been hearing things and was concerned for his wellbeing. He reports recreatio nal marijuana use and smoking 1 pack of cigarettes daily. He denied alcohol or any additional illicit substance use. Denied experiencing chest discomfort, shortness of breath, fever, chills, cough, nausea, vomiting, abdominal pain, diarrhea. Review of systems: Pertinent positives and negatives as discussed in HPI, a complete review of systems was performed and all other systems are negative. Physical examination: General: non toxic, no distress, appears at stated age, obese Derm: no unusual rashes/lesions, no unusual ecchymoses, warm, dry Head: atraumatic, normocephalic, symmetric Eyes: EOMI, no lid lag, anicteric sclera ENT: Nose and ears atraumatic, no thrush, no pharyngeal erythema Neck: trachea midline, supple Mouth: no lip lesion, mucus membranes moist Cardiovascular: S1S2 reg, no murmur, no edema Lungs: CTA bilateral, no rhonchi, no rales , no accessory muscle use Abdominal: soft, nontender to palpation, no guarding Ext: no gross muscle atrophy, no contractures, Neuro: No gross focal neuro deficits noted Psych: Alert, oriented, appropriate affect Assessment: Marijuana abuse Tobacco use Psychosis Imaging: None performed Data Review: Reviewed with WBC count 8.2, hemoglobin 15.3, sodium 139, potassium 4.3, BUN 16, creatinine 0.86, urine toxicology positive for marijuana Plan: Advised on the importance of cessation of marijuana and tobacco use Defer management of psychosis to primary psychiatry service Thank you for allowing us to participate in the care of this patient. We will follow peripherally. Do not hesitate to contact us with questions. Someone can be reached from the [facility] hospitalist group at all hours of the day at [phone]. Past Medical History Past Medical History: No Reported History Additional Past Medical History / Comment(s): etoh abuse x 4 years. History of Any Multi-Drug Resistant Organisms: None Reported Past Surgical History: No Surgical Hx Reported Additional Past Surgical History / Comment(s): wisdom teeth Past Anesthesia/Blood Transfusion Reactions: No Reported Reaction Smoking Status: Current every day smoker, Vaper - Past Family History Father Additional Family Medical History / Comment(s): Multiple sclerosis. Mother Family Medical History: No Reported History Medications and Allergies Home Medications Medication Instructions Recorded Confirmed Type No Known Home Medications 12/27/20 08/18/24 History Allergies Allergy/AdvReac Type Severity Reaction Status Date / Time No Known Allergies Allergy Verified 08/18/24 16:57 Results CBC & Chem 7: 08/19/24 07:44 08/19/24 07:44
[2024-08-20] MEDS: ARIPiprazole 5 MG TAB PO ONE (09:54)
--- NOTE | 2024-08-20 12:12 | P.PN ---
Progress Note - Text Progress Note Date: 08/20/24 Interval History: Patient was seen wandering the hallways and was directable and agreeable to sp jad with writer editor in the office. He reports feeling better today. Patient of note was less fixated on and less disorganized today. He states speaking to his however has been unable to speak to the kids. He was tearful when talking about his kids stating he only wants what is best for them and that he misses them. He denied any withdrawal symptoms today. At this time patient denies any suicidal or homicidal ideations, intent or plan. Patient denies any auditory, visual hallucinations and denies any paranoia or delusions. Patient denies any side effects from the medications and has been compliant with meds. Mental Status Exam: General Appearance: Patient appears to be stated age is alert, directable, and cooperative. Grooming is impaired Behavior: Patient is calmly seated without any agitated behavior. He is tearful at times Speech: Patient's speech is fluent and nonpressured. Mood/Affect: Mood is improving mildly, affect is congruent and constricted. Suicidality/Homicidality: Patient denies having any suicidal or homicidal ideation intent or plan. Perceptions: Patient denies any visual hallucinations and denies any auditory hallucinations Though content/process: There is no evidence of any delusional thought content and thought process is linear and goal-directed. Memory and concentration: AOX3, grossly intact for the purposes of this session Judgment and insight: Improving mildly Assessment Schizoaffective disorder, bipolar type Alcohol use disorder Plan: -Patient continues to meet criteria for inpatient psychiatric admission for symptom stabilization and safety. Patient has signed adult voluntary form and medication consent and was placed in patient's chart. -Medications: Please Abilify to 10 mg daily for mood stabilization -When necessary Ativan and Haldol for agitation/aggression. -Labs: Reviewed -SW on board for discharge planning. Encouraged the patient to participate in milieu. Anticipate discharge home with tomorrow, she confirmed no firearms at the house
[2024-08-21] MEDS: ARIPiprazole 10 MG TAB PO SCH (08:49)
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
== END 2024-08-21 18:54 | disposition home or self-care (01) | DRG 885 ==
LOC: EC 13:29 → 3MHU 18:18
PROVIDERS: ADMIT Psychiatry & Neurology Psychiatry; ATTEND Psychiatry & Neurology Psychiatry
DX: F25.0 Schizoaffective disorder, bipolar type (principal); F41.9 Anxiety disorder, unspecified; R45.850 Homicidal ideations; Z56.0 Unemployment, unspecified; R45.1 Restlessness and agitation; F12.10 Cannabis abuse, uncomplicated; F10.10 Alcohol abuse, uncomplicated; Z71.89 Other specified counseling; Z71.41 Alcohol abuse counseling and surveillance of alcoholic; Z11.52 Encounter for screening for COVID-19; Z63.0 Problems in relationship with spouse or partner
CPT/HCPCS: 80053; 80061; 80306; 82075; 82248; 83036; 84443; 85025; 87635; 99285